=== PATIENT | male | born 1995 | race American Indian/Alaskan Native ===

== ENCOUNTER 2017-01-01 17:06 | Emergency (ER) | payer OTHER, MEDICAID ==
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
[2017-01-02] MEDS ORDERED: TYLENOL ONE (02:06)
[2017-01-02] MEDS ORDERED: TYLENOL PO ONE (02:11)
[2017-01-02] MEDS ORDERED: BOOSTRIX IM ONE (08:07)
[2017-01-02] MEDS ORDERED: MOTRIN PO ONE (08:07)
[2017-01-02] MEDS ORDERED: TYLENOL #3 PO ONE (08:07)
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
[2017-01-02] MEDS: NACL 0.9% IR ONE ×2 (08:31→09:27)
[2017-01-02] MEDS: XYLOCAINE 2% INFILTRATI ONE ×2 (08:32→09:27)
--- NOTE | 2017-01-02 08:38 | XRay Report ---
RIGHT HUMERUS: History: Left arm pain. AP and lateral views of the humerus demonstrate normal mineralization and contours for this patient's age. No destructive changes are noted and the adjacent soft tissues are normal. IMPRESSION: Normal right humerus.
--- NOTE | 2017-01-02 08:39 | XRay Report ---
LEFT HAND, 3 views: History: Left hand pain, injury. There is moderate soft tissue swelling on the dorsum of the hand. Normal bone mineralization. No acute osseous findings or joint pathology is appreciated. Chronic deformity of the right fifth met carpal neck is suspected, correlate with history. IMPRESSION: Soft tissue swelling. No acute osseous findings. Suspected chronic, healed boxer's fracture.
[2017-01-02] MEDS ORDERED: ANTIBIOTIC OINT TP ONE (09:45)
[2017-01-02 09:49] VITALS: BP 117/66
== END 2017-01-02 09:49 | disposition home or self-care (01) ==
LOC: ED 17:06
DX: M79.602 Pain in left arm (principal); M79.642 Pain in left hand; M54.2 Cervicalgia; R51 Headache; F17.200 Nicotine dependence, unspecified, uncomplicated; V49.9XXA Car occupant (driver) (passenger) injured in unspecified traffic accident, initial encounter; Y93.9 Activity, unspecified; Y99.9 Unspecified external cause status; Y92.410 Unspecified street and highway as the place of occurrence of the external cause
CPT/HCPCS: 70450; 72125; 90471; 90715